=== PATIENT | male | born 1980 | race Two or more races ===

== ENCOUNTER 2024-07-30 02:36 | Emergency (ER) | payer MEDICAID, SELFPAY ==
--- NOTE | 2024-07-30 02:42 | ECG_ITS ---
Test Reason : OVERDOSE Blood Pressure : */* mmHG Vent. Rate : 86 BPM Atrial Rate : 86 BPM P-R Int : 186 ms QRS Dur : 92 ms QT Int : 384 ms P-R-T Axes : 47 13 34 degrees QTcB Int : 459 ms Normal sinus rhythm Normal ECG No previous ECGs available Referred By: Generic ED Physician Electronically Signed By: Claus Jimenez
[2024-07-30 02:46] VITALS: BP 122/78; PULSE 70; RESP 23; O2SAT 94; BMI 24.2
[2024-07-30 02:54] LABS: Glucose, Whole Blood 143 mg/dL (60-115)
[2024-07-30 02:56] LABS: MANUAL DIFF FLAG NO
[2024-07-30 02:57] LABS: Basophils Absolute Auto 0.1 X10*3/uL (0.0-0.2); Basophils Percent Auto 0.6 % (0-2); Eosinophils Percent Auto 0.1 % (0-4); Hematocrit 44.5 % (42.0-52.0); Hemoglobin 15.7 g/dl (14.0-18.0); Imm Gran Abs Auto 0.05 X10*3/uL (0.00-0.03); Imm Gran Pct Auto 0.6 % (0.0-0.4); Lymphocytes Absolute Auto 1.8 X10*3/uL (1.2-4.9); Lymphocytes Percent Auto 22.1 % (20-40); Mean Corpuscular HGB Conc 35.3 g/dl (31.0-36.0); Mean Corpuscular Hemoglobin 32.8 pg (27.0-33.0); Mean Corpuscular Volume 93.1 fL (80.0-98.0); Mean Platelet Volume 8.6 fL (9.4-12.4); Monocytes Absolute Auto 0.5 X10*3/uL (0.1-1.2); Monocytes Percent Auto 5.7 % (2-11); Neutrophils Absolute Auto 5.9 x10*3/uL (2.0-8.3); Neutrophils Percent Auto 70.9 % (45-73); Platelet Count 276 X10*3/uL (160-400); Red Blood Count 4.78 X10*6/uL (4.60-5.80); White Blood Count 8.3 X10*3/uL (4.8-10.8)
--- NOTE | 2024-07-30 03:02 | PC.NURSE ---
late entry, security assisted pt out of car into wheelchair, brought in by female who states she just met up with him and his friend on the street by [employer]. since she got to them he had been out of it. brought to ed once he began throwing up. reports he had been drinking, unknown what or how much. unsure of substance use. pt rushed back to ed17. very diaphoretic. poc 143. labs drawn. iv established 1L NS initiated. Leann PICKETT and John ENGLISH aware of situation. care over to primary RN Nati who completed triage assessment. pin point pupils noted however sats 96% and pt responsive to tactile stimuli. pt denied drug use.
--- NOTE | 2024-07-30 03:07 | ED_ITS ---
HPI - Alcohol General Chief Complaint: ETOH/Substance Use Stated Complaint: ETOH Time Seen by Provider: 07/30/24 03:06 Source: EMS Mode of arrival: EMS Limitations: no limitations History of Present Illness ED Provider: HPI narrative: Patient is brought intoxicated arrived with a female friend apparently was drinking and started vomiting blood-tinged lethargic on arrival no head injury or fall Related Data Previous Rx's ?Medication ?Instructions ?Recorded omeprazole 40 mg capsule,delayed 40 mg PO DAILY #30 ca ps 07/30/24 release Allergies Allergy/AdvReac Type Severity Reaction Status Date / Time No Known Allergies (No Known Allergy Verified 07/30/24 02:49 Allergies*) Review of Systems 2 Review of Systems: Yes Unobtainable due to mental status PMFSH Social History Social History Advance Directives: No Advance Directives Information Provided: No Do you have a plan to hurt others: No Plan Physical Exam ED Vital Signs: Vital Signs - 24 hr 07/30/24 02:46 07/30/24 05:08 07/30/24 05:20 Temperature 98.4 F 98.4 F Pulse Rate 70 54 54 Respiratory Rate 23 H 16 16 Blood Pressure 122/78 127/83 127/83 Pulse Oximetry 94 97 97 Oxygen Delivery Method Room Air Room Air Room Air BMI result Body Mass Index 24.2 Appearance: Lethargic intoxicated. No acute distress. Eyes: PERRLA, No Nystagmus ENT: Pharynx normal. Oral Mucosa moist atraumatic normocephalic Neck: Normal inspection. Neck supple. CVS: Normal heart rate and rhythm. Pulses normal. Respiratory: No respiratory distress. Equal air entry bilateral, no wheezing/rales/rhonchi Abdomen: Soft and nontender. Bowel sounds are present, no mass palpable, no CVA tenderness Skin: Skin warm and dry. Normal skin color. Normal skin turgor. Extremities: No lower extremity edema. No calf tenderness Neuro: Lethargic intoxicated moving all 4 extremities Medical Decision Making Medical Decision Making [facility] Narrative: Patient with alcohol abuse came for change in mental status with vomiting coffee colored during stay patient felt better woke up denies any complaints taking p.o. fluids does not want any help from alcohol use at that he had just alcohol H&H stable will discharge patient home no more vomiting in the ER Differential Diagnosis Differential Diagnoses: The differential diagnosis associated with the presentation includes Lab Data MDM Lab Attestation statement: I reviewed the patient's lab results. 07/30/24 02:52 07/30/24 02:52 Labs: Lab Results 07/30/24 07/30/24 Range/Units 02:51 02:52 WBC 8.3 (4.8-10.8) X10*3/uL RBC 4.78 (4.60-5.80) X10*6/uL Hgb 15.7 (14.0-18.0) g/dl Hct 44.5 (42.0-52.0) % MCV 93.1 (80.0-98.0) fL MCH 32.8 (27.0-33.0) pg MCHC 35.3 (31.0-36.0) g/dl RDW 12.0 (11.0-16.0) % Plt Count 276 (160-400) X10*3/uL MPV 8.6 L (9.4-12.4) fL Immature Gran % (Auto) 0.6 H (0.0-0.4) % Neut % (Auto) 70.9 (45-73) % Lymph % (Auto) 22.1 (20-40) % [place] % (Auto) 5.7 (2-11) % Eos % (Auto) 0.1 (0-4) % Baso % (Auto) 0.6 (0-2) % Lymph # (Auto) 1.8 (1.2-4.9) X10*3/uL [place] # (Auto) 0.5 (0.1-1.2) X10*3/uL Eos # (Auto) 0.0 (0.0-0.4) X10*3/uL Baso # (Auto) 0.1 (0.0-0.2) X10*3/uL Abs Immat Gran (auto) 0.05 H (0.00-0.03) X10*3/uL Absolute Neuts (auto) 5.9 (2.0-8.3) x10*3/uL Absolute Nucleated RBC 0.000 (0.0-0.012) X10*3/uL Nucleated RBC % (auto) 0.0 (0.0-0.2) /100WBC Sodium 145 (135-145) mmol/L Potassium 3.3 (3.3-5.1) mmol/L Chloride 109 H (96-108) mmol/L Carbon Dioxide 22 (22-29) mmol/L Anion Gap 17 (12-20) BUN 9 (9-16) mg/dL Creatinine 0.91 (0.5-1.4) mg/dL Estim Creat Clear Calc 95.4 Estimated GFR > 60 POC Glucose 143 H (60-115) mg/dL Random Glucose 149 H (60-115) mg/dL Calcium 9.9 (8.4-10.2) mg/dL Total Bilirubin 0.3 (0.0-1.0) mg/dL AST 32 (5-37) U/L ALT 57 H (0-40) U/L Alkaline Phosphatase 64 (39-117) U/L Troponin I High Sens < 2.7 (<3.5-35.0) ng/L Total Protein 8.1 H (6.5-8.0) g/dL Albumin 5.3 H (3.5-5.0) g/dL Ethyl Alcohol 283 mg/dL Independent Interpretation I performed an independent interpretation of an: EKG Interpretation: Normal sinus rhythm ventricular rate 86 beats per minute normal interval normal axis no acute STT wave changes no acute ischemia Medications Administered Discontinued Medications Generic Name Dose Route Start Last Admin Trade Name Freq PRN Reason Stop Dose Admin Sodium Chloride 1,000 mls @ 999 mls/hr 07/30/24 03:08 07/30/24 05:17 Ns IV 07/30/24 04:08 Infused .Q1H1M ONE Infusion Pantoprazole Sodium 80 mg 07/30/24 03:08 07/30/24 03:18 Pantoprazole Sodium 40 Mg/10 Ml Vial IVPUSH 07/30/24 03:09 80 mg ONCE ONE Administration Discharge Plan Discharge Clinical Impression: Alcoholic intoxication, Gastritis Patient Disposition: Home, Self-Care Instructions: Gastritis (ED), Alcohol Intoxication (DC) Additional Instructions: Stop drinking alcohol Medication for acid reflux as prescribed Follow with your PCP Prescriptions: New omeprazole 40 mg capsule,delayed release(DR/EC) 40 mg PO DAILY Qty: 30 0RF Interventions: ED Discharge Assessment Last Done: 07/30/24 05:20 Discharge Date/Time: 07/30/24 05:20 Print Language: Slovenian
[2024-07-30] MEDS: Pantoprazole Sodium 40 MG/10 ML VIAL 80 MG IVPUSH (03:18)
[2024-07-30] MEDS: 0.9 % Sodium Chloride 1,000 ML 999 ML IV (03:18)
[2024-07-30 03:23] LABS: Albumin Level 5.3 g/dL (3.5-5.0); Alkaline Phosphatase 64 U/L (39-117); Anion Gap 17 (12-20); Aspartate Amino Transferase 32 U/L (5-37); Bilirubin Total 0.3 mg/dL (0.0-1.0); Blood Urea Nitrogen 9 mg/dL (9-16); Calcium 9.9 mg/dL (8.4-10.2); Carbon Dioxide 22 mmol/L (22-29); Chloride 109 mmol/L (96-108); Creatinine Clr Calc Pharmacy 95.4; Estimated Glomerular Filt Rate > 60; Ethanol 283 mg/dL; Glucose Random 149 mg/dL (60-115); Potassium 3.3 mmol/L (3.3-5.1); Sodium 145 mmol/L (135-145); Total Protein 8.1 g/dL (6.5-8.0)
[2024-07-30 03:26] LABS: Troponin-I High Sensitivity < 2.7 ng/L (<3.5-35.0)
[2024-07-30 03:37] LABS: Alanine Aminotransferase 57 U/L (0-40)
[2024-07-30 05:08] VITALS: BP 127/83; PULSE 54; RESP 16; TEMP 36.9; O2SAT 97
--- NOTE | 2024-07-30 05:18 | PC.NURSE ---
Pt is awake, aox4, ambulating with a steady gait and wanting to be discharged. MD aware.
[2024-07-30 05:20] VITALS: BP 127/83; PULSE 54; RESP 16; TEMP 36.9; O2SAT 97
== END 2024-07-30 05:20 | disposition home or self-care (01) ==
PROVIDERS: Emergency Provider Internal Medicine
DX: F10.120 Alcohol abuse with intoxication, uncomplicated (principal); R53.83 Other fatigue; Y90.8 Blood alcohol level of 240 mg/100 ml or more; K29.60 Other gastritis without bleeding
CPT/HCPCS: 36415; 80053; 80307; 82947; 84484; 85025; 93005; 96361; 96374; 99284; 99285; J2470

== ENCOUNTER → 2024-07-30 02:42 | Outpatient (BNV) | payer MEDICAID, SELFPAY | PROVIDERS: Emergency Provider Internal Medicine; Visit Provider Internal Medicine Cardiovascular Disease | DX: T50.901A Poisoning by unspecified drugs, medicaments and biological substances, accidental (unintentional), initial encounter (principal) | CPT/HCPCS: 93010 ==